=== PATIENT | female | born 1985 | race Hispanic/Latino ===

== ENCOUNTER 2017-06-09 12:29 | Outpatient (CLI) | payer OTHER ==
--- NOTE | 2017-06-09 15:06 | RAD ---
HYSTEROSALPINGOGRAM: Date: 06/09/17 INDICATION: Infertility testing and pelvic pain. FLUOROSCOPY TIME: 0.6 minutes with a total exposure of 149.5 mGy*cm\S\2. TECHNIQUE: Informed consent was provided to the patient. The patient was then placed in lithotomy position. The cervix was then sterilized using Betadine solution. The cervical canal was then cannulated with the balloon catheter. The balloon was deployed upon administration of the catheter within the endometri al canal. When confirmation of appropriate fixation of the catheter within the endometrial canal was obtained, fluoroscopic examination was performed. FINDINGS: The catheter on the fuel management handler images projects in the expected position. Early fill images dem onstrate no appreciable filling defect. There is bilateral migration of contrast within the fallopia n tubes. The fallopian tubes are normal appearing. There is extravasation of contrast from both fall opian tubes with spillage in the peritoneal cavity. IMPRESSION: Normal hysterosalpingogram. POS: [facility]
[2017-06-09] MEDS ORDERED: Iopamidol 300 61% 50 ML VIAL FS ONE (15:58)
== END 2017-06-09 12:30 | disposition home or self-care (01) ==
LOC: RAD 12:29
PROVIDERS: ATTEND Obstetrics & Gynecology
DX: Z31.41 Encounter for fertility testing (principal); R10.2 Pelvic and perineal pain
CPT/HCPCS: 58340; 74740

== ENCOUNTER 2018-10-11 20:59 | Inpatient (IN) | payer MEDICAID, OTHER, SELFPAY ==
[~2018-10-11 20:59] MED LIST: Bupivacaine 0.25% HCL 30 ML VIAL ONE; Bupivacaine PF 0.5% 30 ML VIAL ONE; Sodium Chloride 0.9% (PF) 10 ML VIAL ONE
[2018-10-11 21:58] VITALS: BMI 39.1
[2018-10-11] MEDS: Lactated Ringer's 1,000 ML IV SCH (22:00)
[2018-10-11] MEDS ORDERED: NS / Oxytocin 40 units/1000ml 1,000 ML IV PRN (22:31)
[2018-10-11] MEDS ORDERED: Lidocaine 1% (PF) 30 ML VIAL SC PRN (22:31)
[2018-10-11] MEDS ORDERED: Ondansetron PF 4 MG/2 ML Vial IVP PRN (22:31)
[2018-10-11] MEDS ORDERED: Promethazine HCl 25 MG/ML VIAL IM PRN (22:31)
[2018-10-11] MEDS ORDERED: Ibuprofen 800 MG TAB PO PRN (22:31)
--- NOTE | 2018-10-11 22:37 | PDOC.FPROB ---
FMR OB H&P: HPI - History of Present Illness Chief Complaint: Induction of Labor History of Present Illness: 33 yo at 41.0w by LMP/9.4w sono here for post-dates IOL. She is having rare contractions, denies VB, LOF, discharge. Endorses regular movement. She states she used to be [employer] but is no longer practicing and agrees to blood transfusion if it was an emergent situation. Primary Care Physician: Magdalena Greco MD, PGY-3 FMR OB H&P: Current - Care : 1 Para: 0 Gestational age: 41.0 Due date: 10/04/2018 Dating Criteria: LMP/9.4w sono Total weight gain: 20 lbs Course/Complications: Low-lying placenta early on, resolved Size > dates - OB Labs Blood type: O RH: positive Antibody Screen: negative HIV: negative RPR: negative HepBsAg: negative Rubella: immune Urine drug screen: not done Gonorrhea: negative Chlamydia: negative Pap Smear: NILM, HPV negative 02/23/2018 1 hour gtt: 107 A1c: 5.1 GBS: negative H&H: 12. Platelets: 295 - First Trimester Ultrasound First trimester: 9.4w, sIUP - Anatomy Survey Anatomy survey: 20.4w Marginal posterior placenta, male sex - Additional Ultrasound Additional: 29.4 Placenta not low-lying FMR OB H&P: History - Past Medical History PMH: GERD - OB History OB History: G1 - Surgical History Sx History: None - Social History Social History: Denies t/a/d - Family History Family History: Brothers: T2DM Father: Cancer, unknown type FMR OB H&P: Medications - Current Home Medications: Medication Instructions Recorded Confirmed Type Pnv,Calcium 72/Iron/Folic Acid 1 tab PO DAILY 10/11/18 10/11/18 History [ Plus Tablet] Allergies/Adverse Reactions: Allergies Allergy/AdvReac Type Severity Reaction Status Date / Time No Known Allergies Allergy Verified 10/11/18 22:01 FMR OB H&P: ROS - Review of Systems General: denies: fever/chills, weight/appetite/sleep changes Eyes: denies: eye pain, vision changes ENT: denies: nasal congestion, rhinorrhea Cardiovascular: denies: chest pain, palpitation Respiratory: denies: cough, congestion Gastrointestinal: denies: abdominal pain, cramping, diarrhea, constipation Genitourinary (Female): denies: dysuria, hematuria Musculoskeletal: denies: pain, stiffness, swelling Neurologic: denies: numbness, syncope Integumentary: denies: itching, rash Psychological: denies: depression, anxiety FMR OB H&P: Vital Signs - Maternal Vital signs: VS reviewed and WNL - Heart Tones Baseline: 130 Variability: moderate Acceleration: present Deceleration: absent Category: category 1 FMR OB H&P: Physical Exam - Physical Exam General: NAD, awake, alert and oriented HEENT: normocephalic and atraumatic, PERRLA Neck: supple, trachea midline Breast: symmetric, non-tender Heart: RRR, normal S1/S2 General: CTAB, no respiratory distress Abdomen: soft, gravid, fundus(cm) (43) Musculoskeletal: normal gait and station Skin: no rash, good tugor Lymphatic: no unusual bruising or bleeding Psychiatric: intact recent and remote memory, good judgement and insight - Pelvic Exam Estimated Weight: 9 lbs FMR OB H&P: A/P - Problem List (1) Post-dates Current Visit: Yes Status: Acute Code(s): O48.0 - POST-TERM (2) Term Current Visit: Yes Status: Acute Code(s): Z34.80 - ENCOUNTER FOR SUPRVSN OF NORMAL , UNSP TRIMESTER Disposition: 33 yo at 41.0w (EDC 10/04/18) here for post-dates IOL 1. Post-dates - Fundal height 43 cm - Will obtain growth sono and if < 5kg plan for IOL with cytotec 2. Pap NILM 02/2018 3. s/p flu and Tdap At this time does not desire epidural. Discuss pain control options. Desires circumcision and to breastfeed. Nexplanon for pp contraception. Discussion: Date/Time: 10/11/182234 This H&P was discussed with Dr. jJ who agrees with the above documentation and plan. Addendum - Attending - Attending Attestation Date/Time: 10/12/182124 I personally evaluated the patient and discussed the management with Dr. Greco I agree with the History, Examination, Assessment and Plan documented above with any addition or exceptions noted below. 33 year old at 41w dated by LMP consistent with 9wk US presenting for postdates induction of labor. has been uncomplicated GBS negative. There was concern for macrosomia so growth US was ordered prior to starting induction. Borderline polyhydramnios noted with HARVEY of 21.1 (however per Dr. Greco who reviewed the images with US tech, HARVEY was 28). EFW 3643 gm and cephalic presentation. Cat I FHT. Induction started with cytotec per vagina Anticipate .
[2018-10-11 22:45] LABS: Hemoglobin 12.3 g/dL (12.0-16.0); Mean Corpuscular HGB CONC 34.2 g/dL (32.0-36.0); Mean Corpuscular Volume 93.8 fL (78.0-98.0); Mean Platelet Volume 8.3 fL (7.4-10.4); Platelet Count 277 thou/uL (130-400); RBC Distribution Width 12.2 % (11.5-14.5); Red Blood Cell (RBC) Count 3.84 mill/uL (4.20-5.40); White Blood Cell (WBC) Count 12.7 thou/uL (4.8-10.8)
[2018-10-11 23:11] LABS: Syphilis Antibody Nonreactive (Nonreactive); Syphilis Antibody Index 0.06 S/CO (<1.00 Non-Reactive)
[2018-10-11 23:40] LABS: Hep B Surf Ag Non-Reactive S/CO (NonReactive)
--- NOTE | 2018-10-11 23:55 | PDOC.LDPN ---
Labor & Delivery Progress Note - Subjective Subjective: comfortable - Objective Vital signs reviewed and normal: yes General: resting Uterine fundus: non tender Dilation: 0 Effacement: 25% Station: -3 FHT: category 1 [place] contractions every: q10 - Assessment (1) Post-dates Code(s): O48.0 - POST-TERM Current Visit: Yes Status: Acute (2) Term Code(s): Z34.80 - ENCOUNTER FOR SUPRVSN OF NORMAL , UNSP TRIMESTER Current Visit: Yes Status: Acute (3) Polyhydramnios affecting in third trimester Code(s): O40.3XX0 - POLYHYDRAMNIOS, THIRD TRIMESTER, NOT APPLICABLE OR UNSP Current Visit: Yes Status: Acute Plan: other -: 33 yo at 41.0w (EDC 10/04/18) here for post-dates IOL 1. Post-dates - Fundal height 43 cm - Sono showed EFW 3600g, mild polyhydramnios (HARVEY 28cm), cephalic presentation 2. Polyhydramnios - GTT and a1c negative 3. Pap NILM, HPV negative 02/2018 4. care: - s/p and Tdap (declined flu) - Plans for nexplanon pp - Plans to breastfeed 5. GBS negative Will proceed with IOL with cytotec
[2018-10-12] MEDS: Misoprostol 100 MCG TAB VAG SCH ×2 (00:05→03:37)
--- NOTE | 2018-10-12 04:23 | PDOC.LDPN ---
Labor & Delivery Progress Note - Subjective Subjective: comfortable - Objective Vital signs reviewed and normal: yes General: resting Uterine fundus: non tender Dilation: 0 Effacement: 0% Station: -3 FHT: category 1 (150/mod/+accels/no decels) [place] contractions every: 8-10, inconsistent - Assessment (1) Post-dates Code(s): O48.0 - POST-TERM Current Visit: Yes Status: Acute (2) Term Code(s): Z34.80 - ENCOUNTER FOR SUPRVSN OF NORMAL , UNSP TRIMESTER Current Visit: Yes Status: Acute (3) Polyhydramnios affecting in third trimester Code(s): O40.3XX0 - POLYHYDRAMNIOS, THIRD TRIMESTER, NOT APPLICABLE OR UNSP Current Visit: Yes Status: Acute Plan: continue plan of care -: 33 yo at 41.1w (EDC 10/04/18) here for post-dates IOL 1. Post-dates - Fundal height 43 cm - Sono showed EFW 3600g, mild polyhydramnios (HARVEY 28cm), cephalic presentation - cytotec #1 at approx 1200, #2 at approx 0330 - possible tachycardia for 1 hour with occasional variables, resolved and cat 1 strip for > 2 hours prior to placement of 2nd cytotec 2. Polyhydramnios - GTT and a1c negative 3. Pap NILM, HPV negative 02/2018 4. care: - s/p and Tdap (declined flu) - Plans for nexplanon pp - Plans to breastfeed 5. GBS negative s/p cytotec #2, recheck in 3-4 hours, consider balloon placement if able vs. oral miso vs. cervidil
--- NOTE | 2018-10-12 06:56 | PDOC.LDPN ---
Labor & Delivery Progress Note - Subjective Subjective: comfortable - Objective Vital signs reviewed and normal: yes General: resting Uterine fundus: non tender FHT: category 1 (150/mod/+accel/no decel) [place] contractions every: 1-2 minutes - Assessment (1) Post-dates Code(s): O48.0 - POST-TERM Current Visit: Yes Status: Acute (2) Term Code(s): Z34.80 - ENCOUNTER FOR SUPRVSN OF NORMAL , UNSP TRIMESTER Current Visit: Yes Status: Acute (3) Polyhydramnios affecting in third trimester Code(s): O40.3XX0 - POLYHYDRAMNIOS, THIRD TRIMESTER, NOT APPLICABLE OR UNSP Current Visit: Yes Status: Acute Plan: continue plan of care -: 33 yo at 41.1w (EDC 10/04/18) here for post-dates IOL 1. Post-dates - Fundal height 43 cm - Sono showed EFW 3600g, mild polyhydramnios (HARVEY 28cm), cephalic presentation - cytotec #1 at approx 1200, #2 at approx 0330 - possible tachycardia for 1 hour with occasional variables, resolved and cat 1 strip for > 2 hours prior to placement of 2nd cytotec 2. Polyhydramnios - GTT and a1c negative 3. Pap NILM, HPV negative 02/2018 4. care: - s/p and Tdap (declined flu) - Plans for nexplanon pp - Plans to breastfeed 5. GBS negative s/p cytotec #2, nery too often for additional dose at this time, recheck in 1 hour, consider balloon placement if able vs. oral miso vs. cervidil
[2018-10-12] MEDS: Lactated Ringer's 1,000 ML IV SCH ×4 (06:57→22:40)
--- NOTE | 2018-10-12 07:39 | ULT ---
OBSTETRIC SONOGRAM LIMITD: HISTORY: Third trimester gestation. Evaluate placental location and size. FINDINGS: Single intrauterine gestation in cephalic presentation. Heart motion at 158 b.p.m. Grade II placent a is to the left. No evidence of placenta previa. Uterine cervix predominantly obscured by the feta l cranium. Amniotic fluid index 21.1. Measurements are as follows: Biparietal diameter 38 weeks 0 days Head circumference 38 weeks 0 days Abdominal circumference 39 weeks 0 days Femur 40 weeks 0 days Estimated weight 3643 gm (8 pounds 1 ounce). IMPRESSION: 1. Single viable intrauterine gestation with estimated gestational age based on today's sonogram of 38 weeks 5 days. No evidence of placenta previa. Placenta is on the right. 2. Polyhydramnios. POS: [facility]
--- NOTE | 2018-10-12 08:22 | PDOC.LDPN ---
Labor & Delivery Progress Note - Subjective Subjective: comfortable - Objective Vital signs reviewed and normal: yes General: NAD, resting, breathing through contractions Uterine fundus: non tender Dilation: 1 Effacement: 75% Station: -2 FHT: category 1 (no accels or decels; FHR 150), variability present [place] contractions every: 2-4 min - Assessment (1) Polyhydramnios affecting in third trimester Code(s): O40.3XX0 - POLYHYDRAMNIOS, THIRD TRIMESTER, NOT APPLICABLE OR UNSP Current Visit: Yes Status: Acute (2) Post-dates Code(s): O48.0 - POST-TERM Current Visit: Yes Status: Acute Plan: continue plan of care, labor augmentation -: 33 yo at 41.1w (EDC 10/04/18) here for post-dates IOL Post-dates - Fundal height 43 cm - Sono showed EFW 3600g, mild polyhydramnios (HARVEY 28cm), cephalic presentation - cytotec #1 at approx 0000, #2 at approx 0330 - possible tachycardia for 1 hour with occasional variables, resolved and cat 1 strip for > 2 hours prior to placement of 2nd cytotec - SVE check at 0800: //-2, CTX every 2-4 min, FHR 150, mod variablility, no cytotech placed at this time; Will recheck in 4 hours Polyhydramnios - GTT and a1c negative Pap NILM, HPV negative 02/2018 care - s/p and Tdap (declined flu) - Plans for nexplanon pp - Plans to breastfeed GBS negative s/p cytotec #2, consider balloon placement if able vs. oral miso vs. cervidil if patient not progressing. Patient progressing at this time, so will continue w / current management. Addendum - Attending - Attending Attestation Date/Time: 10/12/18 [id number] I personally evaluated the patient and discussed the management with Dr. Galvez I agree with the History, Examination, Assessment and Plan documented above with any addition or exceptions noted below. pt did not receive 2nd dose of cytotec. Was nery too frequently so it was not placed.
--- NOTE | 2018-10-12 11:19 | PDOC.LDPN ---
Labor & Delivery Progress Note - Subjective Subjective: comfortable - Objective Vital signs reviewed and normal: yes General: NAD, resting, breathing through contractions Uterine fundus: non tender Dilation: 2-3 Effacement: 25% Station: -3 FHT: category 1 (FHR 140, accels present), variability present [place] contractions every: 1-2 min - Assessment (1) Polyhydramnios affecting in third trimester Code(s): O40.3XX0 - POLYHYDRAMNIOS, THIRD TRIMESTER, NOT APPLICABLE OR UNSP Current Visit: Yes Status: Acute (2) Post-dates Code(s): O48.0 - POST-TERM Current Visit: Yes Status: Acute Plan: continue plan of care, pitocin for augmentation -: 33 yo at 41.1w (EDC 10/04/18) here for post-dates IOL Post-dates - Fundal height 43 cm - Sono showed EFW 3600g, mild polyhydramnios (HARVEY 28cm), cephalic presentation - cytotec #1 at approx 0000, #2 at approx 0330 - possible tachycardia for 1 hour with occasional variables, resolved and cat 1 strip for > 2 hours prior to placement of 2nd cytotec - SVE check at 1100 2-3/25%/-3; Will start pitocin for augmentation of labor and titrate as needed. Will recheck in 4 hours Polyhydramnios - GTT and a1c negative Pap NILM, HPV negative 02/2018 care - s/p and Tdap (declined flu) - Plans for nexplanon pp - Plans to breastfeed GBS negative Patient progressing at this time, will start pitocin. Recheck in 4 hours.
[2018-10-12] MEDS: NS w/ Oxytocin 10 units 500 ML IV SCH (11:35)
--- NOTE | 2018-10-12 15:09 | PDOC.LDPN ---
Labor & Delivery Progress Note - Subjective Subjective: comfortable - Objective Vital signs reviewed and normal: yes General: NAD, resting, breathing through contractions Uterine fundus: non tender Dilation: 4 Effacement: 25% Station: -1 FHT: category 1 (FHR 140, accels present, no decels), variability present [place] contractions every: 2-3min - Assessment (1) Polyhydramnios affecting in third trimester Code(s): O40.3XX0 - POLYHYDRAMNIOS, THIRD TRIMESTER, NOT APPLICABLE OR UNSP Current Visit: Yes Status: Acute (2) Post-dates Code(s): O48.0 - POST-TERM Current Visit: Yes Status: Acute Plan: continue plan of care, pitocin for augmentation -: 33 yo at 41.1w (EDC 10/04/18) here for post-dates IOL Post-dates - Fundal height 43 cm - Sono showed EFW 3600g, mild polyhydramnios (HARVEY 28cm), cephalic presentation - cytotec #1 at approx 0000, #2 at approx 0330 - possible tachycardia for 1 hour with occasional variables, resolved and cat 1 strip for > 2 hours prior to placement of 2nd cytotec - SVE check at 1500 4/70/-1; Will continue pitocin for augmentation of labor and titrate as needed. Will recheck in 2 hours Polyhydramnios - GTT and a1c negative Pap NILM, HPV negative 02/2018 care - s/p and Tdap (declined flu) - Plans for nexplanon pp - Plans to breastfeed GBS negative Patient progressing at this time, will continue pitocin. Recheck in 2 hours. Can consider breaking water at that time.
--- NOTE | 2018-10-12 16:59 | PDOC.LDPN ---
Labor & Delivery Progress Note - Subjective Subjective: comfortable, painful contractions - Objective Abnormal vital signs: bp 140/73 General: NAD Uterine fundus: non tender Dilation: 4 Effacement: 75% Station: -1 FHT: category 1 [place] contractions every: 2-3 - Assessment (1) Term Code(s): Z34.80 - ENCOUNTER FOR SUPRVSN OF NORMAL , UNSP TRIMESTER Current Visit: Yes Status: Acute -: 33 yo at 41.1w (EDC 10/04/18) here for post-dates IOL Post-dates - Fundal height 43 cm - Sono showed EFW 3600g, mild polyhydramnios (HARVEY 28cm), cephalic presentation - cytotec #1 at approx 0000, #2 at approx 0330 on 10/12 - possible tachycardia for 1 hour with occasional variables, resolved and cat 1 strip for > 2 hours prior to placement of 2nd cytotec - SVE check at 1500 4/70/-1; 1645 4/70/-1 posterior, bulging bag, pit at 12 Polyhydramnios - GTT and a1c negative Pap NILM, HPV negative 02/2018 care - s/p and Tdap (declined flu) - Plans for nexplanon pp - Plans to breastfeed GBS negative Continue to titrate pit and consider AROM at next check
[2018-10-12 17:53] LABS: #Lymphocytes 1.8 thou/uL (1.20-3.40); #Monocytes 0.8 thou/uL (0.11-0.59); %Basophils 0.1 % (0.0-1.0); %Eosinophils 0.3 % (0.0-10.0); %Lymphocytes 13.3 % (21.0-51.0); %Monocytes 5.9 % (0.0-10.0); %Neutrophils 80.5 % (42.0-75.0); Hemoglobin 12.5 g/dL (12.0-16.0); Mean Corpuscular HGB CONC 34.2 g/dL (32.0-36.0); Mean Corpuscular Hemoglobin 32.3 pg (27.0-31.0); Mean Corpuscular Volume 94.6 fL (78.0-98.0); Mean Platelet Volume 7.9 fL (7.4-10.4); Platelet Count 252 thou/uL (130-400); RBC Distribution Width 12.2 % (11.5-14.5); Red Blood Cell (RBC) Count 3.86 mill/uL (4.20-5.40); White Blood Cell (WBC) Count 13.7 thou/uL (4.8-10.8)
[2018-10-12 18:14] LABS: ALT (SGPT) 8 U/L (8-55); AST (SGOT) 11 U/L (5-34); Albumin 3.3 g/dL (3.5-5.0); Alkaline Phosphatase 183 U/L (40-150); Anion Gap 16 mmol/L (10-20); BUN (Urea Nitrogen) 4 mg/dL (7.0-18.7); Bilirubin, Total 0.6 mg/dL (0.2-1.2); Calc. Creatinine Clearance 199 mL/min (70-130); Carbon Dioxide 17 mmol/L (22-29); Chloride 108 mmol/L (98-107); Estimated GFR-MDRD Greater than 90; Globulin 2.8 g/dL (2.4-3.5); Glucose 84 mg/dL (70-105); Potassium 3.6 mmol/L (3.5-5.1); Protein, Total 6.1 g/dL (6.0-8.3); Sodium 137 mmol/L (136-145); Uric Acid 3.5 mg/dL (2.6-6.0)
[2018-10-12] MEDS ORDERED: Labetalol HCl 100 MG/20 ML VIAL ONE (19:01)
[2018-10-12] MEDS ORDERED: Labetalol HCl 100 MG/20 ML VIAL SLOW IVP ONE (19:08)
[2018-10-12] MEDS ORDERED: Calcium Gluc 4.6 MEQ/10 ML (100 MG/ML) SLOW IVP PRN (19:08)
[2018-10-12] MEDS ORDERED: Magnesium Sulfate 20 GM/WATER 500 ML BAG IVPB SCH (19:15)
[2018-10-12 19:38] LABS: Creatinine, Urine 21.39 mg/dL (47-110); Protein, Urine Random Quant Less than 10 mg/dL (1-14)
--- NOTE | 2018-10-12 19:57 | PDOC.EVN ---
Event Note - Event Note Event Note: Pt seen for cervical check. On review of FHTs and vital signs pt noted to have multiple mild range blood pressures and 3 consecutive systolic blood pressures of >170 with appropriately sized cuff. Pt denies BONILLA, vision changes or RUQ pain. She reports pain is controlled at the moment and declines pain medication or epidural. Cervix: 470/-3 FHT: 140s/mostly moderate variability with short periods of minimal variability/ accels present/occasional brief variable decels. Overall reassuring tracing 1. IOL- -Cat II tracing but overall reassuring -Cervix unchanged since 3pm with pitocin augmentation -Will attempt to AROM and place IUPC to better assess contraction adequacy 2. Severe gestational htn -Pre-eclampsia labs negative and pt is asymptomatic however with persistent severe range blood pressures will treat -Labetalol 10mg IV now and prn BP>160/110 -Start magnesium for seizure prophylaxis 3. GBS negative Management discussed with Dr Childers
[2018-10-12] MEDS ORDERED: Fentanyl 4 mcg/Bup 0.1% Cadd 100 ML ONE (20:22)
[2018-10-12] MEDS ORDERED: Lidocaine 1.5% w/Epi 1:200K 30 ML VIAL (Epid Use) ONE (20:29)
[2018-10-12] MEDS ORDERED: Ondansetron PF 4 MG/2 ML Vial IVP PRN (21:26)
[2018-10-12] MEDS ORDERED: Eucerin (Mineral Oil/Petrolatum,White) 30 gm Jar TOP PRN (21:26)
[2018-10-12] MEDS ORDERED: Promethazine HCl 25 MG/ML VIAL IM PRN (21:26)
[2018-10-12] MEDS ORDERED: Acetaminophen 325 MG TAB PO PRN (21:26)
[2018-10-12] MEDS ORDERED: ePHEDrine/0.9% NaCl/PF SYRINGE 50 mg/10 ml SLOW IVP PRN (21:26)
[2018-10-12] MEDS ORDERED: Naloxone HCl 0.4 mg/ml Vial IVP PRN ×2 (21:26)
[2018-10-12] MEDS ORDERED: Lactated Ringer's 500 ML IV PRN (21:26)
[2018-10-12] MEDS ORDERED: diphenhydrAMINE 50 MG/ML VIAL IVP PRN (21:26)
[2018-10-12] MEDS ORDERED: Fentanyl 4 mcg/Bupivacaine 0.1% Cassette 100 ML EPIDURAL SCH (21:30)
[2018-10-12] MEDS ORDERED: Communication Order-Pharmacy FS SCH (21:30)
--- NOTE | 2018-10-12 22:15 | PDOC.LDPN ---
Labor & Delivery Progress Note - Subjective Subjective: comfortable - Objective Vital signs reviewed and normal: yes General: resting Uterine fundus: non tender Dilation: 4 Effacement: 50% Station: -2 FHT: category 1 (140/mod/+accel/no decel) [place] contractions every: 3 AROM: bloody fluid (scant blood) IUPC placed: yes - Assessment (1) Post-dates Code(s): O48.0 - POST-TERM Current Visit: Yes Status: Acute (2) Term Code(s): Z34.80 - ENCOUNTER FOR SUPRVSN OF NORMAL , UNSP TRIMESTER Current Visit: Yes Status: Acute (3) Polyhydramnios affecting in third trimester Code(s): O40.3XX0 - POLYHYDRAMNIOS, THIRD TRIMESTER, NOT APPLICABLE OR UNSP Current Visit: Yes Status: Acute Plan: continue plan of care, pitocin for augmentation -: 33 yo at 41.1w (EDC 10/04/18) here for post-dates IOL Post-dates , in latent labor - Fundal height 43 cm - Sono showed EFW 3600g, mild polyhydramnios (HARVEY 28cm), cephalic presentation - cytotec #1 at approx 0000, #2 at approx 0330 on 10/12 - possible tachycardia for 1 hour with occasional variables, resolved and cat 1 strip for > 2 hours prior to placement of 2nd cytotec - SVE check at 1500 4/70/-1; 1645 4/70/-1 posterior, bulging bag, pit at 12 2200 4/50/-2 posterior, AROM, pit at 12, slightly different SVE per my check Polyhydramnios - GTT and a1c negative Pap NILM, HPV negative 02/2018 care - s/p and Tdap (declined flu) - Plans for nexplanon pp - Plans to breastfeed GBS negative Continue to titrate pit to MVU goal 200, recheck in 3-4 hours or sooner if indicated.
[2018-10-12] MEDS ORDERED: Labetalol HCl 100 MG/20 ML VIAL SLOW IVP PRN (22:17)
--- NOTE | 2018-10-13 00:36 | PDOC.LDPN ---
Labor & Delivery Progress Note - Subjective Subjective: comfortable - Objective Vital signs reviewed and normal: yes General: resting Uterine fundus: non tender Dilation: 5 Effacement: 75% Station: -2 FHT: category 1 (130/mod/+accels/no decels) [place] contractions every: 3-5 minutes AROM: clear fluid - Assessment (1) Post-dates Code(s): O48.0 - POST-TERM Current Visit: Yes Status: Acute (2) Term Code(s): Z34.80 - ENCOUNTER FOR SUPRVSN OF NORMAL , UNSP TRIMESTER Current Visit: Yes Status: Acute (3) Polyhydramnios affecting in third trimester Code(s): O40.3XX0 - POLYHYDRAMNIOS, THIRD TRIMESTER, NOT APPLICABLE OR UNSP Current Visit: Yes Status: Acute Plan: continue plan of care, pitocin for augmentation -: 33 yo at 41.2w (EDC 10/04/18) here for post-dates IOL Post-dates , in latent labor - Fundal height 43 cm - Sono showed EFW 3600g, mild polyhydramnios (HARVEY 28cm), cephalic presentation - cytotec #1 at approx 0000, #2 at approx 0330 on 10/12 - possible tachycardia for 1 hour with occasional variables, resolved and cat 1 strip for > 2 hours prior to placement of 2nd cytotec - SVE check at 1500 4/70/-1; 1645 4/70/-1 posterior, bulging bag, pit at 12 2200 4/50/-2 posterior, AROM, pit at 14 0020 5/70/-2 posterior, AROM (abundant clear fluid - forebag ruptured), pit at 18 Polyhydramnios - GTT and a1c negative Pap NILM, HPV negative 02/2018 care - s/p and Tdap (declined flu) - Plans for nexplanon pp - Plans to breastfeed GBS negative Continue to titrate pit to MVU goal 200, recheck in 3-4 hours or sooner if indicated.
[2018-10-13] MEDS ORDERED: Pantoprazole 40 MG VIAL IVP SCH (01:00)
[2018-10-13] MEDS: NS w/ Oxytocin 10 units 500 ML IV SCH (01:21)
--- NOTE | 2018-10-13 02:30 | PDOC.LDPN ---
Labor & Delivery Progress Note - Subjective Subjective: comfortable - Objective Vital signs reviewed and normal: yes General: resting Uterine fundus: non tender Dilation: 7 Effacement: 75% Station: -2 FHT: category 1 (130/mod/+accel/early decels) [place] contractions every: 3-4 minutes - Assessment (1) Post-dates Code(s): O48.0 - POST-TERM Current Visit: Yes Status: Acute (2) Term Code(s): Z34.80 - ENCOUNTER FOR SUPRVSN OF NORMAL , UNSP TRIMESTER Current Visit: Yes Status: Acute (3) Polyhydramnios affecting in third trimester Code(s): O40.3XX0 - POLYHYDRAMNIOS, THIRD TRIMESTER, NOT APPLICABLE OR UNSP Current Visit: Yes Status: Acute Plan: continue plan of care, pitocin for augmentation -: 33 yo at 41.2w (EDC 10/04/18) here for post-dates IOL 1. Post-dates , now in active labor - Fundal height 43 cm - Sono showed EFW 3600g, mild polyhydramnios (HARVEY 28cm), cephalic presentation - cytotec #1 at approx 0000, #2 at approx 0330 on 10/12 - possible tachycardia for 1 hour with occasional variables, resolved and cat 1 strip for > 2 hours prior to placement of 2nd cytotec - SVE check at 1500 4/70/-1; 1645 4/70/-1 posterior, bulging bag, pit at 12 2200 4/50/-2 posterior, AROM, pit at 14 0020 5/70/-2 posterior, AROM (abundant clear fluid - forebag ruptured), pit at 18 0230 7/80/-2 misposition 2. Gestational Hypertension, severe ranges pressures - PreE labs negative - Headache without vision changes - Will try tylenol and phenergan for nausea, PPI - UOP > 30 cc/hr Polyhydramnios - GTT and a1c negative Pap NILM, HPV negative 02/2018 care - s/p and Tdap (declined flu) - Plans for nexplanon pp - Plans to breastfeed GBS negative Continue to titrate pit to MVU goal 200, recheck in 2 hours
[2018-10-13] MEDS: Magnesium Sulfate 20 gm/500 ml 20 GM/500 ML BAG IVPB SCH ×2 (04:00→16:08)
--- NOTE | 2018-10-13 04:46 | PDOC.LDPN ---
Labor & Delivery Progress Note - Subjective Subjective: comfortable - Objective Vital signs reviewed and normal: yes General: NAD Dilation: 7 Effacement: 75% Station: -1 FHT: category 1 (140/mod/+ accels/no decels) [place] contractions every: 1-2min AROM: clear fluid IUPC placed: yes Plan: continue plan of care, labor augmentation -: 33 yo at 41.2w (EDC 10/04/18) here for post-dates IOL 1. Post-dates , now in active labor - Fundal height 43 cm - Sono showed EFW 3600g, mild polyhydramnios (HARVEY 28cm), cephalic presentation - cytotec #1 at approx 0000, #2 at approx 0330 on 10/12 - possible tachycardia for 1 hour with occasional variables, resolved and cat 1 strip for > 2 hours prior to placement of 2nd cytotec - SVE check at 1500 4/70/-1; 1645 4/70/-1 posterior, bulging bag, pit at 12 2200 4/50/-2 posterior, AROM, pit at 14 0020 5/70/-2 posterior, AROM (abundant clear fluid - forebag ruptured), pit at 18 0230 7/80/-2 misposition 0445 7/80/-1 AROM pit at 22 - Will hold pit for 1 hr then restart 2. Gestational Hypertension, severe ranges pressures - PreE labs negative - Headache without vision changes - Will try tylenol and phenergan for nausea, PPI - UOP > 30 cc/hr Polyhydramnios - GTT and a1c negative Pap NILM, HPV negative 02/2018 care - s/p and Tdap (declined flu) - Plans for nexplanon pp - Plans to breastfeed GBS negative Continue to titrate pit to MVU goal 200, recheck in 2 hours Addendum - Attending - Attending Attestation Date/Time: 10/13/181954 I personally evaluated the patient and discussed the management with Dr. Greco I agree with the History, Examination, Assessment and Plan documented above with any addition or exceptions noted below. At 8am cervix remained unchanged. With greater than 5 hrs without cervical dilation in the setting of adequate MVUs, decision was made to proceed with primary for arrest of dilation at 7cm. R/B/A of delivery were discussed, including but not limited to risk of bleeding, infection, damage to structures surrounding uterus, needed for hysterectomy for life saving purposes. Pt verbalized understanding and expressed desire to proceed with delivery.
[2018-10-13] MEDS ORDERED: Fentanyl 4 mcg/Bup 0.1% Cadd 100 ML ONE (05:35)
--- NOTE | 2018-10-13 07:52 | PDOC.EVN ---
Event Note - Event Note Event Note: Patient now 5 hours without change. MVUs inadequate despite pitocin. Discussed with patient the need to proceed to . Discussed risks of procedure and all questions asked and answered. Patient agrees with proceeding to . Will plan for later this AM.
[2018-10-13] MEDS ORDERED: Bicitra 30 ML UDCUP ONE (07:56)
[2018-10-13] MEDS ORDERED: CEFAZOLIN 2 GM/50 ML BAG ONE (07:56)
[2018-10-13] MEDS ORDERED: Azithromycin 500 MG in Sodium Chloride 0.9% 250 ML 250 ML IVPB SCH (08:30)
[2018-10-13] MEDS ORDERED: CEFAZOLIN 1 GM in Sodium Chloride 0.9% 100 ML IVPB SCH (08:30)
[2018-10-13] MEDS ORDERED: Morphine PF 1 MG/ML SYR ONE (09:10)
[2018-10-13] MEDS ORDERED: Fentanyl 100 MCG/2 ML VIAL ONE (09:10)
[2018-10-13] MEDS ORDERED: PHENYLEPHRINE-NS 100 MCG/ML 10 ML SYRINGE ONE ×2 (09:11→15:48)
[2018-10-13] MEDS ORDERED: Ketorolac Tromethamine 30 MG/ML VIAL ONE ×2 (09:11→15:48)
[2018-10-13] MEDS ORDERED: Dexamethasone 4 mg/ml Vial ONE (09:11)
[2018-10-13] MEDS ORDERED: Oxytocin 10 UNITS/ML VIAL ONE ×2 (09:11→09:12)
[2018-10-13] MEDS ORDERED: Ondansetron PF 4 MG/2 ML Vial ONE (09:11)
[2018-10-13] MEDS ORDERED: Metoclopramide HCl 10 MG/2 ML VIAL ONE ×2 (09:11→15:48)
[2018-10-13] MEDS ORDERED: ePHEDrine/0.9% NaCl/PF SYRINGE 50 mg/10 ml ONE (09:12)
[2018-10-13] MEDS ORDERED: Bisacodyl 10 MG SUPP PR PRN (09:27)
[2018-10-13] MEDS ORDERED: Lanolin Ointment 7 GM TUBE TOP PRN (09:27)
[2018-10-13] MEDS ORDERED: Adacel (T-DAP) 0.5 ML SYRINGE IM ONE (09:27)
[2018-10-13] MEDS ORDERED: Misoprostol 200 MCG TAB ONE (09:29)
[2018-10-13] MEDS ORDERED: Carboprost 250 MCG/ML AMP ONE (09:30)
[2018-10-13] MEDS ORDERED: Promethazine HCl 25 MG/ML VIAL IM PRN (09:55)
[2018-10-13] MEDS ORDERED: Ondansetron PF 4 MG/2 ML Vial IVP PRN (09:55)
[2018-10-13] MEDS ORDERED: Promethazine HCl 25 MG SUPP PR PRN (09:55)
[2018-10-13] MEDS ORDERED: Naloxone HCl 0.4 mg/ml Vial IV PRN (09:55)
[2018-10-13] MEDS ORDERED: diphenhydrAMINE 50 MG/ML VIAL IVP PRN (09:55)
[2018-10-13] MEDS ORDERED: Eucerin (Mineral Oil/Petrolatum,White) 30 gm Jar TOP PRN (09:55)
[2018-10-13] MEDS ORDERED: Naloxone HCl 0.4 mg/ml Vial IVP PRN ×2 (09:55)
[2018-10-13] MEDS ORDERED: Ondansetron HCl/PF 4 MG/2 ML Vial IVP PRN (09:55)
[2018-10-13] MEDS ORDERED: HYDROmorphone 2 MG/ML VIAL SLOW IVP PRN (09:55)
[2018-10-13] MEDS ORDERED: L&D-Morphine 4 MG/ML VIAL SLOW IVP PRN (09:55)
[2018-10-13] MEDS ORDERED: Meperidine HCl/PF 25 MG/ML VIAL SLOW IVP PRN (09:55)
[2018-10-13] MEDS ORDERED: Morphine 4 MG/ML VIAL SLOW IVP PRN (09:57)
[2018-10-13] MEDS ORDERED: Communication Order-Pharmacy FS SCH (10:00)
[2018-10-13] MEDS ORDERED: Ketorolac Tromethamine 30 MG/ML VIAL IVP SCH (10:00)
[2018-10-13] MEDS ORDERED: Bupivacaine 0.25% HCL 30 ML VIAL ONE (11:11)
[2018-10-13] MEDS ORDERED: Sodium Chloride 0.9% (PF) 10 ML VIAL ONE (11:11)
[2018-10-13] MEDS ORDERED: Bupivacaine/Epinephrine 0.25% 30 ML VIAL ONE (11:11)
[2018-10-13] MEDS ORDERED: CEFAZOLIN/Water 2 GM/20 ML SYRINGE SLOW IVP SCH (11:15)
[2018-10-13] MEDS: AFRIN NASAL MIST 15 ML BOT NS SCH ×2 (13:36→23:22)
[2018-10-13] MEDS: Ketorolac Tromethamine 30 MG/ML VIAL IVP SCH ×3 (13:37→23:23)
[2018-10-13 13:39] LABS: HBSAg Index 0.19 S/CO (0-0.99)
--- NOTE | 2018-10-13 14:44 | PDOC.PP ---
Post Progress Note Post Day #: 0 Subjective: Patient resting comfortably. Reports feeling tired. Patient states she has been and the planning consultant has been by to assist. Denies abdominal pain, SOB, headache, chest pain, vision changes, NVD. PO intake tolerated: yes Flatus: no Ambulation: no Vital Signs (12 hours) Pulse BP 10/13/18 10:08 96 171/83 H Weight Weight 93.894 kg - Physical Examination General: NAD Cardiovascular: no m/r/g, RRR Respiratory: clear to auscultation bilaterally, non-labored breathing Abdominal: no distention, appropriately TTP Fundus firm & at: level of umbilicus Extremities: negative homans (B) Deviation from normal: bandage over incision, dry and intact Neurological: no gross focal deficits Deviation from normal: Bilateral patellar reflexes 1+ Psychiatric: A&Ox3, normal affect Result Diagrams: 10/12/18 17:30 10/12/18 17:30 Additional Labs: Post Labs Blood Type O POSITIVE 10/11/18 22:04 (1) Post-dates Code(s): O48.0 - POST-TERM Status: Acute (2) Gestational HTN Code(s): O13.9 - GESTATIONAL HTN W/O SIGNIFICANT PROTEINURIA, UNSP TRIMESTER Status: Acute (3) Polyhydramnios affecting in third trimester Code(s): O40.3XX0 - POLYHYDRAMNIOS, THIRD TRIMESTER, NOT APPLICABLE OR UNSP Status: Acute - Assessment/Plan Post dates - s/p - Incision bandaged - dry and intact; appropriately TTP - Patient , consulted consulted - Otherwise routine PP care - H&H in the AM Gestational HTN - On Mg for high BPs prior to deliver. Patient had BPs ranging from 105-120/ 60s. Patient doing well, no NVD or headaches, reflexes intact bilaterally, urine output >100ml/hr. Will continue to monitor. Mg to be stopped after 24 hours which is at 1900. Will continue to monitor BPs - Pre-E labs neg Polyhydramnios - GTT and a1c negative Pap NILM, HPV negative 02/2018 care - s/p and Tdap (declined flu) - Plans for nexplanon pp GBS negative Continue routine PP care. Will transfer to PP after Mg stopped tonight.
[2018-10-13] MEDS ORDERED: Magnesium Sulfate 20 gm/500 ml 20 GM/500 ML BAG IVPB SCH (15:56)
[2018-10-13] MEDS ORDERED: Calcium Gluconate 4.6 MEQ in Sodium Chloride 0.9% 100 ML IVPB PRN (15:56)
[2018-10-13] MEDS ORDERED: HYDROcodone/Acetaminophen 5/325 mg Tablet PO PRN (15:56)
--- NOTE | 2018-10-13 19:21 | PDOC.PP ---
Post Progress Note Post Day #: 0 Subjective: Feeling well, having some sinus congestion. Denies headaches, vision changes, chest pain or SOB. Vital Signs (12 hours) Pulse BP 10/13/18 10:08 96 171/83 H Weight Weight 93.894 kg - Physical Examination General: NAD Cardiovascular: no m/r/g, RRR Respiratory: clear to auscultation bilaterally, non-labored breathing Abdominal: no distention Neurological: no gross focal deficits Deviation from normal: patellar reflexes 2+, no ankle clonus, eyes PERRLA Psychiatric: A&Ox3, normal affect Result Diagrams: 10/12/18 17:30 10/12/18 17:30 Additional Labs: Post Labs Blood Type O POSITIVE 10/11/18 22:04 Hep Bs Antigen Non-Reactive S/CO (NonReactive) 10/11/18 22:04 (1) Gestational HTN Code(s): O13.9 - GESTATIONAL HTN W/O SIGNIFICANT PROTEINURIA, UNSP TRIMESTER Status: Acute (2) Polyhydramnios affecting in third trimester Code(s): O40.3XX0 - POLYHYDRAMNIOS, THIRD TRIMESTER, NOT APPLICABLE OR UNSP Status: Acute (3) Post-dates Code(s): O48.0 - POST-TERM Status: Acute (4) Term Code(s): Z34.80 - ENCOUNTER FOR SUPRVSN OF NORMAL , UNSP TRIMESTER Status: Acute - Assessment/Plan 10/13/18 @ 1900 Post dates - s/p - Incision bandaged - dry and intact; appropriately TTP - Patient , consulted consulted - Otherwise routine PP care - H&H in the AM Gestational HTN - On Mg for high BPs prior to deliver. Patient had BPs ranging from 105-120/60s. - Patient doing well, no NVD or headaches, reflexes intact bilaterally, urine output >100ml/hr. Blood pressure stable, will stop mag and transfer her to the PP unit - Pre-E labs neg Polyhydramnios - GTT and a1c negative Pap NILM, HPV negative 02/2018 care - s/p and Tdap (declined flu) - Plans for nexplanon pp GBS negative Continue routine PP care. Will transfer to PP.
[2018-10-13] MEDS ORDERED: Ibuprofen 800 MG TAB PO SCH (22:00)
[2018-10-13] MEDS: Docusate Calcium (SURFAK) 240 MG CAP PO SCH (23:22)
[2018-10-14] MEDS: Ketorolac Tromethamine 30 MG/ML VIAL IVP SCH ×2 (06:50→11:43)
[2018-10-14 07:00] LABS: Hemoglobin 8.8 g/dL (12.0-16.0); Mean Corpuscular HGB CONC 33.6 g/dL (32.0-36.0); Mean Platelet Volume 7.8 fL (7.4-10.4); Platelet Count 233 thou/uL (130-400); RBC Distribution Width 12.1 % (11.5-14.5); Red Blood Cell (RBC) Count 2.75 mill/uL (4.20-5.40); White Blood Cell (WBC) Count 16.7 thou/uL (4.8-10.8)
--- NOTE | 2018-10-14 07:13 | PDOC.PP ---
Post Progress Note Post Day #: 1 Subjective: Feeling well. Has not yet been up to bathroom or ambulatory. Pain well- controlled and feels is going well. PO intake tolerated: no Flatus: yes Ambulation: no Weight Weight 93.894 kg - Physical Examination General: NAD Cardiovascular: no m/r/g, RRR Respiratory: clear to auscultation bilaterally Abdominal: + bowel sounds, lochia (scant), no distention, appropriately TTP Fundus firm & at: umbilicus Extremities: negative homans (B) Skin: CS incision dry & intact (bandage in place, minimal drainage), no rash Neurological: no gross focal deficits Psychiatric: A&Ox3, normal affect Result Diagrams: 10/14/18 06:16 10/12/18 17:30 Additional Labs: Post Labs Blood Type O POSITIVE 10/11/18 22:04 Hep Bs Antigen Non-Reactive S/CO (NonReactive) 10/11/18 22:04 (1) Post-dates Code(s): O48.0 - POST-TERM Status: Acute (2) Term Code(s): Z34.80 - ENCOUNTER FOR SUPRVSN OF NORMAL , UNSP TRIMESTER Status: Acute (3) Polyhydramnios affecting in third trimester Code(s): O40.3XX0 - POLYHYDRAMNIOS, THIRD TRIMESTER, NOT APPLICABLE OR UNSP Status: Acute - Assessment/Plan 33 yo F POD/PPD #1 from primary LTCS for arrest of dilation (likely 2/2 nuchal cord) 1. PPD/POD #1 - Unsuccessful IOL, arrest of descent at 7cm (likely tight 2/2 nuchal cord x2 noted upon C/S delivery) and possibly size (3960g) - s/p primary LTCS - Incision bandaged - dry and intact; appropriately TTP - Patient , Rubina and nursing assistance appreciated - Otherwise routine PP care - H&H dropped today, will monitor for sx, repeat in a.m. 2. Gestational HTN - On Mg for high BPs prior to deliver. Patient had BPs ranging from 105-120/60s. - Patient doing well, no NVD or headaches, reflexes intact bilaterally, urine output >100ml/hr. Blood pressure stable, s/p 24 hours total Mg - Pre-E labs neg 3. Polyhydramnios - HARVEY 28 noted upon admission to hospital - GTT and a1c negative 4. Pap NILM, HPV negative 02/2018 5. / care - s/p and Tdap (declined flu) - Plans for nexplanon pp GBS negative Continue routine PP care. Possible d/c tomorrow, likely Friday. Addendum - Attending - Attending Attestation Date/Time: 10/14/18 7547 I personally evaluated the patient and discussed the management with Dr. Greco I agree with the History, Examination, Assessment and Plan documented above with any addition or exceptions noted below. POD #1 s/p PLTCS. Doing well. Pain controlled. Has ambulated without dizziness. +spontaneous urination s/p removal of humphries. bleeding light. +Flatus. Denies BONILLA, Vision changes or RUQ pain. Dressing removed. Incision is clean dry and intact. No erythema or drainage. 1. POD 1 -meeting milestones -continue routine postop care - Anticipate d/c to home on POD #2or 3 2. Acute blood loss anemia -Asymptomatic currently -Continue to monitor 3. severe gestational HTN -Had 2 severe range blood pressures in past 24hrs that we were not notified of -Pt asymptomatic and BP now is normotensive -Will monitor closely and start antihypertensive medication if indicated.
[2018-10-14] MEDS: Ferrous Sulfate 325 MG TAB PO SCH (08:38)
[2018-10-14] MEDS: Docusate Calcium (SURFAK) 240 MG CAP PO SCH ×2 (08:40→21:35)
[2018-10-14] MEDS: Prenatal Vitamin 1 TAB PO SCH (08:40)
[2018-10-14] MEDS ORDERED: Triple Antibiotic Oint 1 GM Packet TOP PRN (10:51)
[2018-10-14] MEDS: AFRIN NASAL MIST 15 ML BOT NS SCH (11:42)
[2018-10-14] MEDS: Pantoprazole 40 MG VIAL IVP SCH (11:42)
[2018-10-14] MEDS: Lactated Ringer's 1,000 ML IV SCH ×3 (11:42→14:03)
[2018-10-14] MEDS: Misoprostol 100 MCG TAB VAG SCH ×2 (11:44→11:45)
[2018-10-14] MEDS: HYDROcodone/Acetaminophen 5/325 mg Tablet PO PRN ×2 (14:09→21:35)
[2018-10-14] MEDS: Ibuprofen 800 MG TAB PO SCH ×2 (14:09→21:36)
[2018-10-15 05:46] LABS: Hemoglobin 8.9 g/dL (12.0-16.0); Platelet Count 252 thou/uL (130-400)
[2018-10-15] MEDS: Lactated Ringer's 1,000 ML IV SCH ×3 (06:08→15:48)
[2018-10-15] MEDS: AFRIN NASAL MIST 15 ML BOT NS SCH ×2 (06:08→08:11)
[2018-10-15] MEDS: Ibuprofen 800 MG TAB PO SCH ×2 (06:08→14:00)
--- NOTE | 2018-10-15 07:09 | PDOC.PP ---
Post Progress Note Post Day #: 1 Subjective: Feeling well. Ambulating without dizziness and no concerns today. Would like to go home today if able. PO intake tolerated: yes Flatus: yes Ambulation: yes Vital Signs (12 hours) Temp Pulse Resp BP Pulse Ox 10/15/18 04:00 97.8 F 89 17 132/62 10/14/18 21:00 98.1 F 96 18 130/79 98 Weight Weight 93.894 kg - Physical Examination General: NAD Cardiovascular: RRR Respiratory: clear to auscultation bilaterally Abdominal: + bowel sounds, lochia (scant), no distention, appropriately TTP Fundus firm & at: umbilicus Extremities: negative homans (B) Skin: CS incision dry & intact, no rash Neurological: no gross focal deficits Psychiatric: A&Ox3, normal affect Result Diagrams: 10/15/18 05:25 10/12/18 17:30 Additional Labs: Post Labs Blood Type O POSITIVE 10/11/18 22:04 Hep Bs Antigen Non-Reactive S/CO (NonReactive) 10/11/18 22:04 (1) Post-dates Code(s): O48.0 - POST-TERM Status: Acute (2) Term Code(s): Z34.80 - ENCOUNTER FOR SUPRVSN OF NORMAL , UNSP TRIMESTER Status: Acute (3) Polyhydramnios affecting in third trimester Code(s): O40.3XX0 - POLYHYDRAMNIOS, THIRD TRIMESTER, NOT APPLICABLE OR UNSP Status: Acute (4) Gestational HTN Code(s): O13.9 - GESTATIONAL HTN W/O SIGNIFICANT PROTEINURIA, UNSP TRIMESTER Status: Acute - Assessment/Plan 33 yo F POD/PPD #2 from primary LTCS for arrest of dilation (likely 2/2 nuchal cord) 1. PPD/POD #2 - Unsuccessful IOL, arrest of descent at 7cm (likely tight 2/2 nuchal cord x2 noted upon C/S delivery) and possibly infant size/cepalopelvic disproportion ( 3960g) - s/p primary LTCS - Incision dry and intact; appropriately TTP - Patient , Rubina and nursing assistance appreciated - Otherwise routine PP care - H&H stable from yesterday, asymptomatic 2. Gestational HTN - On Mg for high BPs prior to deliver. Patient had BPs ranging from 105-120/60s. - Patient doing well, no NVD or headaches, reflexes intact bilaterally, urine output >100ml/hr. Blood pressure stable, s/p 24 hours total Mg - Pre-E labs neg 3. Polyhydramnios - HARVEY 28 noted upon admission to hospital - GTT and a1c negative 4. Pap NILM, HPV negative 02/2018 5. / care - s/p and Tdap (declined flu) - Plans for nexplanon pp GBS negative Continue routine PP care. Likely discharge later today. Addendum - Attending - Attending Attestation Date/Time: 10/16/18 [id number] I personally evaluated the patient and discussed the management with Dr. Greco I agree with the History, Examination, Assessment and Plan documented above with any addition or exceptions noted below. Stable POD# 2. Meeting milestones. Stable for d/c to home today
[2018-10-15 08:22] VITALS: BP 135/73; TEMP 98
[2018-10-15] MEDS: Docusate Calcium (SURFAK) 240 MG CAP PO SCH (08:24)
[2018-10-15] MEDS: Prenatal Vitamin 1 TAB PO SCH (08:24)
[2018-10-15] MEDS: Ferrous Sulfate 325 MG TAB PO SCH (08:24)
[2018-10-15] MEDS: Pantoprazole 40 MG VIAL IVP SCH (08:26)
[2018-10-15] MEDS: HYDROcodone/Acetaminophen 5/325 mg Tablet PO PRN (12:13)
--- NOTE | 2018-10-17 02:15 | DN ---
DATE OF PROCEDURE: 10/13/2018 Delivery Note RESIDENT SURGEON: Magdalena Greco MD INTENSIVE CARE UNIT NURSE SURGEON: Eliecer Osuna MD ATTENDING SURGEON: Мария Jj DO PROCEDURE: Primary low-transverse section for arrest of dilation. PREOPERATIVE DIAGNOSES: 1. Term intrauterine . 2. Arrest of dilation. POSTOPERATIVE DIAGNOSES: 1. Term intrauterine . 2. Arrest of dilation. ANESTHESIA: Epidural. INDICATIONS: The patient is a 33-year-old, G1, P0 at 41 weeks, who presented for postdates induction of labor. The patient arrived at 7-8 cm dilation and failed to make any cervical change management analyst greater than 4 hours. At this time, I suspected that either cephalopelvic disproportion or nuchal cord was preventing infant from descending anymore. Plan was discussed with mother and she strongly desired to proceed with primary . PROCEDURE IN DETAIL: After risks, benefits, and alternatives were explained to the patient, she gave informed consent. Preoperative antibiotics included cefazolin 2 g IV and azithromycin 500 mg IV. The patient was taken to the operating room and epidural anesthesia was determined to be adequate. She was placed in a supine position with left tilt and prepped and draped in the usual sterile fashion. A Pfannenstiel incision was made with a scalpel and carried down to the level of the fascia, which was sharply nicked. The fascial cut was extended bilaterally with Rubin scissors. The inferior and superior edges of the cut fascial edges were elevated with Doroteo clamps and underlying rectus muscles were sharply and bluntly dissected free. The recti were divided digitally and retracted medially. The peritoneum was entered bluntly and retracted medially. An Ramon O was placed. A low transverse score was made with a scalpel and the uterus was entered in the midline bluntly. Clear fluid was seen. The hysterotomy was extended in a cephalocaudal fashion manually. The was noted to be vertex and easily delivered by fundal pressure. Nuchal cord x2 was noted and was easily reduced upon delivery. Mouth and nares were bulb suctioned. Cord was clamped and cut after delayed cord clamping and grossly normal male was handed to awaiting nurse. Cord blood was obtained. Placenta was manually extracted and found to be intact with 3-vessel cord and discarded. The uterus was externalized. Endometrium was curetted with a dry lap. The hysterotomy was closed with a running, locking 1-0 monocryl suture. Good hemostasis was noted. The uterus was internalized and the hysterotomy was again noted to be hemostatic. The abdomen was irrigated with saline and suctioned free of clots. The rectus was approximated with a single horizontal mattress of 2-0 chromic suture. The fascia was closed with a running nonlocking 0 PDS suture. The subcutaneous tissue was irrigated. There were no bleeders. The subcutaneous tissue was approximated with 3 interrupted 2-0 plain gut sutures. The skin was approximated with 3-0 Monocryl on a Blair needle, Dermabond and pressure dressing were applied. All counts were correct. The patient tolerated the procedure well and was taken to recovery room in stable condition. ESTIMATED BLOOD LOSS: 700 mL. COMPLICATIONS: None. SPECIMENS: Cord blood sent to lab for blood type. FINDINGS: Grossly normal male with Apgars of 8 and 9. Grossly normal placenta with 3-vessel cord sent to Pathology. DRAINS: Reyes to gravity draining clear urine. Job ID: [id number] Attending Addendum: I was present for and assisted in the entire uncomplicated section performed by Katya Greco and Enrrique. I agree with documented findings and plan of care. Мария Jj DO COY
== END 2018-10-15 16:35 | disposition home or self-care (01) | DRG 787 ==
LOC: L&D 20:59 → 3SW 10-13 20:51
PROVIDERS: ADMIT Student in an Organized Health Care Education/Training Program; ATTEND Student in an Organized Health Care Education/Training Program
PROC: 3E033VJ Introduction of Other Hormone into Peripheral Vein, Percutaneous Approach (ICD-10-PCS; 2018-10-11)
PROC: 10D00Z1 Extraction of Products of Conception, Low, Open Approach (ICD-10-PCS; principal; 2018-10-13)
PROC: 10907ZC Drainage of Amniotic Fluid, Therapeutic from Products of Conception, Via Natural or Artificial Opening (ICD-10-PCS; 2018-10-13)
PROC: 4A1HXCZ Monitoring of Products of Conception, Cardiac Rate, External Approach (ICD-10-PCS; 2018-10-13)
PROC: 4A1HXFZ Monitoring of Products of Conception, Cardiac Rhythm, External Approach (ICD-10-PCS; 2018-10-13)
DX: O62.0 Primary inadequate contractions (principal); D62 Acute posthemorrhagic anemia; O40.3XX0 Polyhydramnios, third trimester, not applicable or unspecified; O32.4XX0 Maternal care for high head at term, not applicable or unspecified; Z3A.41 41 weeks gestation of pregnancy; Z37.0 Single live birth; O90.81 Anemia of the puerperium; O48.0 Post-term pregnancy; O13.4 Gestational [pregnancy-induced] hypertension without significant proteinuria, complicating childbirth; O69.81X0 Labor and delivery complicated by cord around neck, without compression, not applicable or unspecified; O76 Abnormality in fetal heart rate and rhythm complicating labor and delivery; K21.9 Gastro-esophageal reflux disease without esophagitis; O99.62 Diseases of the digestive system complicating childbirth
CPT/HCPCS: 36415; 51702; 76815; 80053; 82570; 83735; 84156; 84550; 85014; 85018; 85025; 85027; 85049; 86780; 86850; 86900; 86901; 87340; 88307; C9113; J0456; J0690; J1100; J1885; J2274; J2405; J2550; J2590; J2765; J3010; J3475; J3490; J7050; S0020

== ENCOUNTER 2018-10-17 18:03 | Emergency (ER) | payer MEDICAID, OTHER ==
[2018-10-17] MEDS ORDERED: Ondansetron PF 4 MG/2 ML Vial ONE (18:27)
[2018-10-17 18:43] LABS: Anisocytosis SLIGHT = 6-15 cells (100X) (0-5/hpf); Band 13 % (5-11); Hemoglobin 10.3 g/dL (12.0-16.0); Lymphocytes 17 % (21-51); MDiff Complete? YES; Mean Corpuscular HGB CONC 34.5 g/dL (32.0-36.0); Mean Corpuscular Hemoglobin 32.6 pg (27.0-31.0); Mean Corpuscular Volume 94.6 fL (78.0-98.0); Mean Platelet Volume 6.7 fL (7.4-10.4); Monocytes 2 % (0-10); Neutrophil 67 % (42-75); Platelet Count 389 thou/uL (130-400); Platelet Morphology Comment Appears Adequate; Polychromasia SLIGHT = 2-3 cells (100X) (0-2/hpf); RBC Distribution Width 12.6 % (11.5-14.5); Reactive Lymphocytes 1 % (0-10); Red Blood Cell (RBC) Count 3.15 mill/uL (4.20-5.40); White Blood Cell (WBC) Count 10.4 thou/uL (4.8-10.8)
[2018-10-17 18:44] LABS: ALT (SGPT) 34 U/L (8-55); AST (SGOT) 29 U/L (5-34); Albumin 3.6 g/dL (3.5-5.0); Alkaline Phosphatase 117 U/L (40-150); Anion Gap 16 mmol/L (10-20); BUN (Urea Nitrogen) 6 mg/dL (7.0-18.7); Bilirubin, Total 0.4 mg/dL (0.2-1.2); Calc. Creatinine Clearance 0 mL/min (70-130); Calcium 9.3 mg/dL (7.8-10.44); Carbon Dioxide 20 mmol/L (22-29); Chloride 109 mmol/L (98-107); Estimated GFR-MDRD Greater than 90; Globulin 3.1 g/dL (2.4-3.5); Glucose 95 mg/dL (70-105); Lipase 12 U/L (8-78); Potassium 4.2 mmol/L (3.5-5.1); Protein, Total 6.7 g/dL (6.0-8.3); Sodium 141 mmol/L (136-145)
[2018-10-17 19:12] LABS: Bilirubin Negative (Negative); Blood, Urine Large (Negative); Clarity Clear (Clear); Glucose, Urine (Dipstick) Negative (Negative); Leukocyte Trace (Negative); Nitrite Negative (Negative); Protein, Urine (Dipstick) Negative (Neg-Trace); Urobilinogen 0.2 mg/dL (0.2-1.0); pH, Urine 7.5 (5.0-9.0)
[2018-10-17 19:17] LABS: Squamous Epithelial 0-3 HPF (0-3); WBC/HPF 0-3 HPF (0-3)
--- NOTE | 2018-10-17 19:27 | CT ---
ABDOMEN AND PELVIC CT SCAN WITHOUT IV CONTRAST: 10/17/18 HISTORY: Nausea and vomiting, mild abdominal pain since four days ago. Mild linear stranding in the lung bases. The liver is unremarkable. there is some slight increased de nsity in the dependent portion of the gallbladder possibly mild sludge but no evidence for acute chol ecystitis. The visualized pancreas, spleen, adrenal glands are unremarkable. Mild dilatation of both right and left renal upper collecting systems slightly more prominent on the right side without evide nce for renal or acute calculus. Normal appearing appendix. Enlarged post uterus contain s some heterogeneous high attenuation density and air within the intrauterine cavity probably related to some residual blood within the endometrial cavity. Changes of the anterior abdominal wall consist ent with recent surgery. No evidence for abscess, adenopathy, or abnormal fluid collection. No bowel obstruction. IMPRESSION: Post changes. Normal appearing appendix. Slight fullness of the renal collecting systems, r ight slightly worse than left without evidence for acute obstruction. Slight increased density in the gallbladder having more the appearance of sludge without evidence for acute cholecystitis. Mild l inear stranding in the lung bases. No evidence for abscess or significant acute hemorrhage. POS: [facility]
== END 2018-10-17 19:38 | disposition home or self-care (01) ==
LOC: SCSER 18:03
DX: O99.89 Other specified diseases and conditions complicating pregnancy, childbirth and the puerperium (principal); R11.2 Nausea with vomiting, unspecified; G89.18 Other acute postprocedural pain; R10.9 Unspecified abdominal pain
CPT/HCPCS: 74176; 80053; 81003; 81015; 83690; 85025; 87086; 96361; 96374; J2405

== ENCOUNTER 2021-06-21 07:02 | Outpatient (CLI) | payer OTHER | END 2021-06-21 07:03 | disposition home or self-care (01) | LOC: BICULT 07:02 | PROVIDERS: ATTEND Student in an Organized Health Care Education/Training Program | DX: R11.2 Nausea with vomiting, unspecified (principal); K80.20 Calculus of gallbladder without cholecystitis without obstruction; K76.0 Fatty (change of) liver, not elsewhere classified | CPT/HCPCS: 76705 ==

== ENCOUNTER 2022-09-17 23:04 | Emergency (ER) | payer SELFPAY ==
[2022-09-17 23:37] LABS: #Eosinphils 0.1 thou/uL (0.0-0.7); #Lymphocytes 3.1 thou/uL (1.20-3.40); #Monocytes 0.8 thou/uL (0.11-0.59); #Neutrophils 9.3 thou/uL (1.40-6.50); %Basophils 0.1 % (0.0-1.0); %Eosinophils 0.9 % (0.0-10.0); %Lymphocytes 23.1 % (21.0-51.0); %Monocytes 6.3 % (0.0-10.0); %Neutrophils 69.6 % (42.0-75.0); Hemoglobin 13.6 g/dL (12.0-16.0); Mean Corpuscular HGB CONC 33.7 g/dL (32.0-36.0); Mean Corpuscular Hemoglobin 30.2 pg (27.0-31.0); Mean Corpuscular Volume 89.7 fl (78.0-98.0); Mean Platelet Volume 8.5 fL (7.4-10.4); Platelet Count 260 10x3/uL (130-400); RBC Distribution Width 12.4 % (11.5-14.5); Red Blood Cell (RBC) Count 4.49 mill/uL (4.20-5.40); White Blood Cell (WBC) Count 13.3 10x3/uL (4.8-10.8)
[2022-09-17 23:41] LABS: BHCG - Serum Negative (NEGATIVE); Pregs Control Background? CLEAR/WHITE (CLR/WHITE); Pregs Control Bar Appear? YES (CONTROL BAR)
[2022-09-17 23:57] LABS: Bilirubin Negative (Negative); Blood, Urine Negative (Negative); Clarity Clear (Clear); Glucose, Urine (Dipstick) Normal (Negative); Ketone, Urine Negative (Negative); Leukocyte Negative Leu/uL (Negative); Nitrite Negative (Negative); Protein, Urine (Dipstick) Negative (Neg-Trace); Specific Gravity, Urine 1.013 (1.002-1.036); Urobilinogen Normal mg/dL (Less than 2); pH, Urine 6.5 (5.0-9.0)
[2022-09-18 00:04] LABS: ALT (SGPT) 38 U/L (8-55); AST (SGOT) 84 U/L (5-34); Albumin 4.2 g/dL (3.5-5.0); Alkaline Phosphatase 148 U/L (40-110); Anion Gap 14 mmol/L (10-20); BUN (Urea Nitrogen) 8 mg/dL (7.0-18.7); Bilirubin, Total 0.3 mg/dL (0.2-1.2); Calc. Creatinine Clearance 0 mL/min (70-130); Carbon Dioxide 22 mmol/L (22-29); Chloride 107 mmol/L (98-107); Estimated GFR 108; Globulin 3.1 g/dL (2.4-3.5); Glucose 86 mg/dL (70-105); Lipase 23 U/L (8-78); Potassium 3.9 mmol/L (3.5-5.1); Protein, Total 7.3 g/dL (6.0-8.3); Sodium 139 mmol/L (136-145)
== END 2022-09-18 03:30 | disposition home or self-care (01) ==
LOC: ERS 23:04
DX: R10.11 Right upper quadrant pain (principal)
CPT/HCPCS: 36415; 76705; 80053; 81003; 83690; 84703; 85025

== ENCOUNTER 2025-06-10 08:09 | Day surgery (SDC) | payer SELFPAY ==
[2025-06-09 15:32] VITALS: BMI 41.5
[2025-06-10] MEDS ORDERED: Ropivacaine 0.5% HCl/PF (150 MG/30 ML VIAL) ONE (09:48)
[2025-06-10] MEDS ORDERED: CEFAZOLIN 2 GM VIAL ONE (10:37)
[2025-06-10] MEDS ORDERED: PROPOFOL 20 ML ONE (10:39)
[2025-06-10] MEDS ORDERED: fentaNYL PF 100 MCG/2 ML SYRINGE ONE (10:39)
[2025-06-10] MEDS ORDERED: Glycopyrrolate 0.2 MG/ML 5 ML SYRINGE ONE (10:48)
[2025-06-10] MEDS ORDERED: Ondansetron PF 4 MG/2 ML Vial ONE ×2 (11:32→14:08)
[2025-06-10] MEDS ORDERED: HYDROcodone/Acetaminophen 5/325 mg Tablet ONE (14:00)
[2025-06-10] MEDS ORDERED: Metoclopramide HCl 10 MG (2 mL) VIAL ONE (14:49)
== END 2025-06-10 15:30 | disposition home or self-care (01) ==
LOC: EDBD → SDC 08:09
PROVIDERS: ATTEND Orthopaedic Surgery
PROC: 0PSL04Z Reposition Left Ulna with Internal Fixation Device, Open Approach (ICD-10-PCS; principal; 2025-06-10)
DX: S52.032A Displaced fracture of olecranon process with intraarticular extension of left ulna, initial encounter for closed fracture (principal); X58.XXXA Exposure to other specified factors, initial encounter; W01.0XXA Fall on same level from slipping, tripping and stumbling without subsequent striking against object, initial encounter; Y92.89 Other specified places as the place of occurrence of the external cause
CPT/HCPCS: C1713; J1100; J2250; J2704; J2765; J2795